=== PATIENT | male | born 1975 | race Two or more races ===

== ENCOUNTER 2018-12-21 22:19 | Emergency (ER) | payer SELFPAY ==
[~2018-12-21] VITALS: Ht 172.7 cm; Wt 90.7 kg
[2018-12-21] MEDS ORDERED: ALBUTEROL FS 2.5 MG/3 ML VIAL.NEB NEB ONE (22:30)
[2018-12-21] MEDS ORDERED: IPRATROPIUM NEB FS 0.5 MG/2.5 ML AMPUL.NEB NEB ONE (22:30)
[2018-12-21] MEDS ORDERED: IV D5/ 0.9% NACL 1,000 ML IV ONE (22:30)
--- NOTE | 2018-12-21 22:35 | NUR ---
[id number] FROM HOME C/O DIZZINESS. FOUND UNCONSCIOUS BY RA, STATES HE USED 3 BUG BOMBS IN HOUSE AND KEPT GOING IN AND OUT. PT'S FAMILY STATES THE NAME OF THE BUG BOMBS WERE : ORHTO HOME DEFINITE INSECT KILLER, RAID, SPECACIDE BUG STOP. PER EMS, PT BS WAS 61 IN FIELD. PT IS AAOX4. PT STATES +THROAT PAIN AND EYE PAIN S/P INHALING BUG KILLER FUMES. NO S/S OF ACUTE DISTRESS NOTED. RR EVEN AND UNLABORED. PT PLACED ON CUSTOMER ACCOUNT TECHNICIAN AND POX. PT SAFETY AND COMFORT MEASURES IN PLACE. MD AWARE OF PT. PT'S FAMILY MEMBER BEDSIDE. WILL CONTINUE TO MONITOR PT.
[2018-12-21] MEDS ORDERED: ALBUTEROL FS 2.5 MG/3 ML VIAL.NEB ONE (22:41)
[2018-12-21] MEDS ORDERED: IPRATROPIUM NEB FS 0.5 MG/2.5 ML AMPUL.NEB ONE (22:41)
[2018-12-21 22:56] LABS: BASOPHILS # (AUTO) 0.1 /CMM (0.0-0.2); BASOPHILS % (AUTO) 0.9 % (0.0-2.0); EOSINOPHILS % (AUTO) 1.6 % (0.0-6.0); HEMATOCRIT 45 % (39-51); HEMOGLOBIN 15.6 g/dL (13.5-17.5); LYMPHOCYTES # (AUTO) 2.7 /CMM (0.8-4.8); LYMPHOCYTES % (AUTO) 27.3 % (20.0-44.0); MEAN CORPUSCULAR HGB CONC 35 g/dl (31.0-36.0); MEAN CORPUSCULAR VOLUME 84 fL (80-96); MONOCYTES # (AUTO) 0.7 /CMM (0.1-1.30); MONOCYTES % (AUTO) 7.3 % (2.0-12.0); NEUTROPHILS # (AUTO) 6.2 /CMM (1.8-8.9); NEUTROPHILS % (AUTO) 62.9 % (43.0-81.0); PLATELET COUNT (AUTO) 254 /CMM (150-450); RED BLOOD CELL COUNT(AUTO) 5.38 MIL/uL (4.5-6.0); WHITE BLOOD COUNT (AUTO) 9.8 K/uL (4.3-11.0)
--- NOTE | 2018-12-21 23:02 | NUR ---
PT TO CT
[2018-12-21 23:04] LABS: CALCIUM, SERUM 9.3 mg/dL (8.5-10.1); CARBON DIOXIDE 27 mmol/L (21-32); CHLORIDE 106 mmol/L (98-107); CREATININE 0.9 mg/dL (0.6-1.3); GLUCOSE 106 mg/dL (74-106); POTASSIUM 3.8 mmol/L (3.5-5.1); SODIUM SERUM 140 mmol/L (136-145); UREA NITROGEN, BLOOD 14 mg/dL (7-18)
[2018-12-21 23:10] LABS: ALANINE AMINOTRANSFERASE 53 U/L (12-78); ALBUMIN 3.5 g/dL (3.4-5.0); ALKALINE PHOSPHATASE 116 U/L (46-116); ASPARTATE AMINOTRANSFERASE 33 U/L (15-37); BILIRUBIN,DIRECT 0.1 mg/dL (0.0-0.2); BILIRUBIN,TOTAL 0.3 mg/dL (0.2-1.0)
--- NOTE | 2018-12-21 23:10 | NUR ---
PT BACK FROM CT
--- NOTE | 2018-12-21 23:44 | NUR ---
PT AMBULATED TO THE RESTROOM WITH HELP OF RELATIVE AND STEADY GAIT NOTED. SPECIMEN CUP GIVEN TO PT TO PROVIDE URINE SAMPLE.
[2018-12-22] MEDS ORDERED: LIDOCAINE /MPF 1% VIAL 5 ML VIAL ONE (00:20)
[2018-12-22] MEDS ORDERED: methylPREDNISolone SOD SUCC 125 MG/2ML VIAL ONE (00:21)
[2018-12-22] MEDS ORDERED: CEFTRIAXONE 1GM BAG (ER ONLY) 50 ML IV ONE (00:21)
[2018-12-22] MEDS ORDERED: LIDOCAINE 4% PF AMPUL 40 MG/ML AMPUL ONE (00:23)
[2018-12-22] MEDS ORDERED: CEFTRIAXONE 1 G in IV D5W 50 ML IV ONE (00:30)
[2018-12-22] MEDS ORDERED: SULFAMETH/TRIMETH 800/160 MG 1 UDTAB TABLET PO ONE ×2 (00:30→00:34)
[2018-12-22] MEDS ORDERED: LIDOCAINE SOLN 4% 50 ML BOTTLE TP ONE (00:30)
[2018-12-22] MEDS ORDERED: LIDOCAINE 1%-EPI 1:100,000 20 ML VIAL TP ONE (00:30)
[2018-12-22] MEDS ORDERED: methylPREDNISolone SOD SUCC 125 MG/2ML VIAL IV ONE (00:30)
--- NOTE | 2018-12-22 00:39 | NUR ---
WOUND DRESSING COMPLETED BY BETH WHALEN.
--- NOTE | 2018-12-22 01:19 | NUR ---
Patient discharged to home in stable condition. Written and verbal after care instructions given. Patient verbalizes understanding of instruction.IV removed. Catheter intact and site benign. Pressure and 4x4 applied to site. No bleeding noted.
[2018-12-22 01:20] VITALS: BP 130/87
== END 2018-12-22 01:23 | disposition home or self-care (01) ==
LOC: ER 22:23
DX: T59.891A Toxic effect of other specified gases, fumes and vapors, accidental (unintentional), initial encounter (principal); J68.0 Bronchitis and pneumonitis due to chemicals, gases, fumes and vapors; F17.200 Nicotine dependence, unspecified, uncomplicated; F41.9 Anxiety disorder, unspecified; E11.9 Type 2 diabetes mellitus without complications; Y92.89 Other specified places as the place of occurrence of the external cause
CPT/HCPCS: 36415; 70450; 71045; 80048; 80076; 84484; 85025; 93005; 94640; 96361; 96365; 96375; 99284; 99406; A4606; A6402; A6407; J0696 ×2; J2930; J3490 ×2; J7030; J7042; J7060